=== PATIENT | male | born 1990 | race Two or more races ===

== ENCOUNTER 2019-10-10 20:19 | Emergency (ER) | payer SELFPAY ==
[~2019-10-10] VITALS: Ht 165.1 cm; Wt 61.7 kg
--- NOTE | 2019-10-10 20:20 | NUR ---
ED Nurse Note: PT WALKED IN TO ED C/O COUGH. 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 PER PATIENT, THE BASKETBALL TEAM HE WAS EXPOSED TO, TESTED POSITIVE FOR CORONAVIRUS. PT DOES NOT PRESENT WITH FEVER. Addendum: 10/10/19 at 2047 by [email or web address] ED Nurse Note: PT WALKED IN TO ED C/O COUGH. 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 PER PATIENT, THE BASKETBALL TEAM HE WAS EXPOSED TO, TESTED POSITIVE FOR CORONAVIRUS. PT DOES NOT PRESENT WITH FEVER. AAOX4, AMBULATORY.
--- NOTE | 2019-10-10 20:40 | NUR ---
ED Nurse Note: ERMD AT BEDSIDE
[2019-10-10 20:45] VITALS: BP 126/80
[2019-10-10] MEDS ORDERED: PROMETHAZINE-D118 ML ORAL (21:06)
[2019-10-10 21:20] VITALS: BP 126/80
--- NOTE | 2019-10-10 21:20 | NUR ---
ED Nurse Note: Pt cleared by health care Provider for discharge. DC instructions/prescription was given and explained to pt and verbalized understanding of teachings. All medical deviecs such as ID band removed. Pt is AAO x4, ambulatory and left with all personal belongings.
--- NOTE | 2019-10-10 21:34 | Emergency Room Report ---
History of Present Illness General Chief Complaint: Upper Respiratory Illness Source: Patient Present Illness HPI 29-year-old male presents the ED for evaluation. States he has had a cough for the last 5 days. 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 States he only found out today. States he has been continuing to work in the hotel. Denies fevers or chills. Denies any shortness of breath. States he has had a dry cough. Denies recent travel. No other aggravating relieving factors. Denies any other associated symptoms COVID-19 risk:Travel to affect: Yes Has patient experienced gutierrez: Yes Coronavirus symptoms experienc: Cough Allergies: Coded Allergies: No Known Allergies (Unverified , 10/10/19) Patient History Past Medical History: none Past Surgical History: none Pertinent Family History: none Social History: Denies: smoking, alcohol use, drug use Immunizations: UTD Reviewed Nursing Documentation: PMH: Agreed; PSxH: Agreed Nursing Documentation-PMH Past Medical History: No Stated History Review of Systems All Other Systems: negative except mentioned in HPI Physical Exam Vital Signs Date Time Temp Pulse Resp B/P (MAP) Pulse Ox O2 Delivery O2 Flow Rate FiO2 10/10/19 20:08 98.4 84 20 126/80 (95) 98 Room Air Sp02 EP Interpretation: reviewed, normal General Appearance: no apparent distress, alert, GCS 15, non-toxic Head: normocephalic, atraumatic Eyes: bilateral eye normal inspection, bilateral eye PERRL ENT: hearing grossly normal, normal pharynx, no angioedema, normal voice Neck: full range of motion, supple/symm/no masses Respiratory: chest non-tender, lungs clear, normal breath sounds, speaking full sentences Cardiovascular #1: regular rate, rhythm, no edema Cardiovascular #2: 2+ carotid (R), 2+ carotid (L), 2+ radial (R), 2+ radial (L) , 2+ dorsalis pedis (R), 2+ dorsalis pedis (L) Gastrointestinal: normal bowel sounds, non tender, soft, non-distended, no guarding, no rebound Rectal: deferred Genitourinary: normal inspection, no CVA tenderness Musculoskeletal: back normal, normal range of motion, gait/station normal, non- tender Neurologic: alert, motor strength/tone normal, oriented x3, sensory intact, responsive, speech normal Psychiatric: judgement/insight normal, memory normal, mood/affect normal, no suicidal/homicidal ideation Reflexes: 3+ bicep (R), 3+ bicep (L), 3+ tricep (R), 3+ tricep (L), 3+ knee (R) , 3+ knee (L) Lymphatic: no adenopathy Medical Decision Making Diagnostic Impression: Primary Impression: Upper respiratory infection Qualified Codes: J06.9 - Acute upper respiratory infection, unspecified ER Course Hospital Course 29-year-old male presents with cough. Recent exposure to coronavirus patient Differential diagnoses include: URI, pharyngitis, otitis media, asthma Clinical course Patient placed in isolation tent with mask. I wore full protective equipment. After initial history, physical exam reveals a male in no acute distress. Bilateral TM unremarkable. No pharyngeal erythema. No tonsillar exudates. No lymphadenopathy. lungs clear. abdomen soft. And afebrile, nontoxic-appearing. Vitals stable. I discussed findings with patient. Given that patient is having continued exposure to multiple people at the hotel since the initial exposure I believe patient would require testing. Coronavirus test sent. I explained to the patient that this test takes 4 to 5 days to come back. In the meanwhile patient needs to self isolate. Patient needs any close contacts to self isolate as well. Safe for discharge close outpatient follow-up Diagnosis - URI Stable and discharged home. self isolate for 14 days. Instructed to followup with PMD. Return to ED if symptoms recur or worsen Last Vital Signs Date Time Temp Pulse Resp B/P (MAP) Pulse Ox O2 Delivery O2 Flow Rate FiO2 10/10/19 21:20 98.4 84 20 126/80 98 Room Air Status: improved Disposition: HOME, SELF-CARE Condition: Stable Scripts D-Methorphan Hb/Prometh Hcl* (PROMETHAZINE-DM SYRUP*) 118 Ml Syrup 5 ML ORAL Q6H PRN for For Cough, #118 ML 0 Refills Prov: Timoteo Mishra MD 10/10/19 Referrals: NOT CHOSEN IPA/,REFERRING (PCP) Isaías Rowe [facility] Patient Instructions: Upper Respiratory Infection, Adult Additional Instructions: you were exposed to coronavirus and may likely have coronavirus. the coronavirus test takes 4-5 days to come back. you need to self isolate immediately. Timoteo Mishra MD Oct 10, 2019 21:34
== END 2019-10-10 21:30 | disposition home or self-care (01) ==
LOC: EDBD 20:19 → EMR 21:29
DX: J06.9 Acute upper respiratory infection, unspecified (principal); Z20.828 Contact with and (suspected) exposure to other viral communicable diseases
CPT/HCPCS: 99282